=== PATIENT | female | born 1950 | race Caucasian/White ===

== ENCOUNTER 2016-11-16 14:24 | Observation (INO) | payer OTHER ==
--- NOTE | 2016-11-16 17:34 | CPEKG ---
Heart Rate: 61 RR Interval: 984 P-R Interval: 188 QRSD Interval: 80 QT Interval: 420 QTC Interval: 423 P [place]: 80 QRS [place]: -44 T Wave [place]: 41 EKG Severity - ABNORMAL ECG - EKG Impression: SINUS RHYTHM EKG Impression: LEFT ANTERIOR FASCICULAR BLOCK EKG Impression: LOW VOLTAGE IN FRONTAL LEADS Electronically Signed By: Luca Ramos 17-Nov-2016 08:26:42
--- NOTE | 2016-11-16 22:05 | GHP ---
[f rep st] HISTORY AND PHYSICAL DATE OF ADMISSION: 11/16/2016 HISTORY OF PRESENT ILLNESS: The patient is a pleasant 66-year-old female with minimal past medical history with a family history of coronary disease who presents with an episode of chest pain that castro ppened when she was using the bathroom this morning and developed some sharp substernal chest pain. It did not radiate but it was associated with some generalized malaise that lingered for at least ab out an hour. She has been having some left-sided elbow and hand pain that is nonexertional. She does not particul aly exercise with any dedicated exercise regimen. She did walk a mile with a friend the other day w hich she felt was like typical exertional tolerance for her and no chest symptoms such as chest pres sure. She does not have any typical anginal symptoms. She has not had fever, chills, cough, sputum, nausea, vomiting, diarrhea. She has no history of veno us thromboembolism and D-dimer at the outside hospital was negative. Her father had coronary disease with the first bypass at age 57, and he ultimately had a second byok ss in 1973 that he did not survive. She has never been told she has high cholesterol, hypertension, diabetes. She does not smoke cigaret margaret or use cocaine. REVIEW OF SYSTEMS: Complete 10-point review of systems conducted, negative except as noted in the H PI. PAST MEDICAL HISTORY: Essentially none. She did have a mechanical fall 1 year ago. ALLERGIES: Nitrofurantoin. HOME MEDICATIONS: None. 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 She drinks 1 bottle of wine per week. Nonsmoker. FAMILY HISTORY: As in the HPI. PHYSICAL EXAM: VITAL SIGNS: Temp 36.6, blood pressure 147/97, pulse 64, breathing 12 times a minute , 99% on room air. GENERAL: No acute distress. HEENT: Sclerae anicteric. Oropharynx clear. Mucous me mbranes are moist. NECK: Supple without lymphadenopathy or JVD. LUNGS: Clear to auscultation bilater ally. HEART: S1, S2 without murmurs. ABDOMEN: Soft, nontender, nondistended. LOWER EXTREMITIES: With out edema. Calves nontender. SKIN: Without rash. NEUROLOGIC: Grossly nonfocal. EKG from the outside hospital, interpreted by me, shows sinus at about 60 with left axis deviation, normal intervals. No ST or T-wave changes. No prior for comparison. Repeat EKG here shows sinus at 60 with left axis deviation, left anterior fascicular block. No ST or T-wave changes and unchanged f rom the previous EKG. left anterior fascicular block. We will follow ischemic workup as f orthcoming. D-dimer is a negative value there. Chest x-ray from the outside hospital shows no acute cardiopulmonary disease. I have discussed the c ase with the outside hospital emergency medicine doctor. Chem 7: Sodium 132, potassium 3.8, chloride 99, bicarb 27, BUN 13, creatinine 1.0. LFTs normal. CBC was reviewed and normal. ASSESSMENT AND PLAN: This is a 66-year-old female with chest pain. 1. Chest pain: I believe that this is likely noncardiac, however, given her age and family history, it is appropriate to perform stress test in the morning. I will cycle her troponins and monitor on telemetry. 2. Hypertension. The patient is hypertensive here. She has left axis deviation. We will follow her blood pressure. She may be a candidate for antihypertensives. 3. Hand tingling. This is most suggestive of cervical spine disease. I do not believe it represents an anginal equivalent but will follow. 4. Prophylaxis: Pharmacologic prophylaxis indicated if in the hospital longer than 24 hours. /[id number]/MODL
[2016-11-17 07:13] LABS: CHOLESTEROL 188 mg/dL (140-220); CHOLESTEROL/HDL RATIO 2.47 RATIO (1.00-4.44); HIGH DENSITY LIPOPROTEIN 76 mg/dL (40-85); LDL/HDL RATIO 1.28 RATIO (1.00-3.22); LOW DENSITY LIPOPROTEIN 97 mg/dL (80-100); NON-HIGH DENSITY LIPOPROTEIN 112 mg/dL (90-129); TRIGLYCERIDE 76 mg/dL (35-135); VERY LOW DENSITY LIPOPROTEINS 15 mg/dL (8-25)
[2016-11-17 07:26] LABS: TROPONIN I < 0.012 ng/mL (0-0.034)
[2016-11-17 07:52] VITALS: BP 126/72; PULSE 75; RESP 18; TEMP 98.1; O2SAT 94
[2016-11-17] MEDS ORDERED: ASPIRIN 325 MG TAB PO SCH (09:00)
[2016-11-17] MEDS ORDERED: MULTIVITAMINS 1 EACH TAB PO SCH (09:00)
--- NOTE | 2016-11-17 12:15 | HOSPPROG ---
Hospitalist Progress Note Assessment/Plan: 66 YO f w cp neg stress neg ddimer home today see dc summary Subjective: NEG STRESS. NO EVENTS TELE Objective: Vital Signs Temp Pulse Resp BP Pulse Ox 36.7 C 75 18 126/72 H 94 11/17/16 07:50 11/17/16 07:50 11/17/16 07:50 11/17/16 07:50 11/17/16 07:50 - Physical Exam Constitutional: no apparent distress, appears nourished Eyes: PERRL, anicteric sclera Ears, Nose, Mouth, Throat: moist mucous membranes, hearing normal Cardiovascular: regular rate and rhythym, no murmur, rub, or gallop Respiratory: no respiratory distress, no rales or rhonchi Gastrointestinal: normoactive bowel sounds, soft, non-tender abdomen Genitourinary: No mirza in urethra Skin: warm, normal color Musculoskeletal: full muscle strength Neurologic: AAOx3
--- NOTE | 2016-11-17 12:26 | CPR ---
[f rep st] NONINVASIVE CARDIAC PROCEDURE REPORT PROCEDURE PERFORMED: Exercise treadmill testing. 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 INDICATIONS FOR PROCEDURE: Chest pressure with shortness of breath. Abnormal electrocardiogram. PRE: After obtaining informed consent, patient was placed on electrocardiogram. Initial EKG shows sinus rhythm, normal axis, poor R-wave progression in anterior leads, no significant ST or T-wave abnormalities. Initial blood pressure 108/64. Patient denies any chest pain, shortness of breath, or symptoms suggesting of ischemia. SpO2 93% on room air. STRESS: Patient was placed on exercise treadmill following standard Kumar protocol with the following findings: 1. Patient exercised for 6 minutes. 2. 7.1 METS. 3. Heart rate obtained was 160 BPM which was 103% of MPHR. 4. Patient reported no symptoms of angina during testing. 5. EKG at peak exercise showed no ST shifts suggesting of ischemia. 6. SpO2 remained greater than 90%. 7. BP variations, at rest 108/64, peak 140/70. 8. Occasional PAC was noted during stress and recovery, no other malignant arrhythmias or pauses. 9. Test was stopped due to maximum effort. 10. Kaiser treadmill score of 6, placing patient at low risk. RECOVERY: Patient recovered for 5 minutes, remained asymptomatic, occasional premature atrial contraction was noted, heart rate returned back to baseline within 5 minutes. Final blood pressure was 134/70. Patient was transferred back to the [facility] in stable condition. IMPRESSION: 66-year-old female reporting 1 episode of chest pressure yesterday with associated shortness of breath and family history of shortness of breath. Admitted to the [facility] for overnight observation. Negative troponin levels since admission. Able to exercise for 6 minutes obtaining 103% maximum predicted heart rate with no significant ST shifts at peak exercise suggesting of ischemia. No symptoms of ischemia at peak exercise. SpO2 remained greater than 90%, occasional PAC noted during stress and recovery. Kaiser treadmill score of 6, placing her at low cardiovascular risk. But patient was noted to have somewhat poor exercise tolerance, would recommend if symptoms recur to undergo MPI study. Findings were reviewed with Dr. Houston. /[id number]/MODL MTDD
--- NOTE | 2016-11-17 12:51 | GDS ---
[f rep st] DISCHARGE SUMMARY DISCHARGE DIAGNOSES: 1. Chest pain. 2. Borderline hypertension. HOSPITAL COURSE: Please see Admission History and Physical by Dr. Tito Medrano. The patient pres ented to an outside ER with chest pain. She was transferred here. She had an exercise treadmill wi th no ischemic changes. Her EKG revealed left anterior fascicular block. It was stable through mul tiple EKGs. She had negative troponins and a negative D-dimer and no oxygen requirement. The etiol ogy of her chest pain remains unclear. Pulmonary embolism and angina were successfully ruled out. Her LDL is 97, and given her absence of coronary disease, this will be considered a goal LDL for her . She takes an aspirin daily. No other medications provided on discharge. /[id number]/MODL
== END 2016-11-17 13:06 | disposition home or self-care (01) ==
LOC: F1N 15:58
PROVIDERS: ADMIT Internal Medicine; ATTEND Internal Medicine
PROC: 4A12XM4 Monitoring of Cardiac Stress, External Approach (ICD-10-PCS; principal; 2016-11-17)
DX: R07.9 Chest pain, unspecified (principal); R06.02 Shortness of breath; R03.0 Elevated blood-pressure reading, without diagnosis of hypertension; I44.4 Left anterior fascicular block; R20.2 Paresthesia of skin; Z79.82 Long term (current) use of aspirin; Z82.49 Family history of ischemic heart disease and other diseases of the circulatory system
CPT/HCPCS: 93005; 93017; G0378

== ENCOUNTER → 2017-03-06 | Outpatient (CLI) | payer OTHER | LOC: FIMAGING 13:11 | PROVIDERS: ATTEND Obstetrics & Gynecology | DX: Z12.31 Encounter for screening mammogram for malignant neoplasm of breast (principal) | CPT/HCPCS: G0202 ==

== ENCOUNTER → 2017-05-15 | Outpatient (CLI) | payer OTHER | LOC: FIMAGING 14:53 | PROVIDERS: ATTEND Internal Medicine | DX: Z13.820 Encounter for screening for osteoporosis (principal); M81.0 Age-related osteoporosis without current pathological fracture; Z78.0 Asymptomatic menopausal state ==